=== PATIENT | male | born 1965 | race Caucasian/White ===

== ENCOUNTER 2023-11-10 07:34 | Outpatient (CLI) | payer OTHER, SELFPAY ==
--- NOTE | 2023-11-10 08:00 | MR_ITS ---
WS: [id number] MRI THORACIC SPINE WITHOUT CONTRAST TECHNIQUE: Sagittal T1, T2 and STIR imaging. Axial T2 imaging. Noncontrast imaging obtained. CLINICAL INFORMATION: persistant pain at T7 s/p trauma 10/13 w radiculopathy COMPARISON: None. FINDINGS: Mild thoracic curve. No acute compression. No high-grade central canal stenosis. Cord signal is nato l. Mild spondylitic changes thoracic spine with mild anterior atrophic changes. Mild to moderate face t arthropathy lower thoracic spine. Mild central canal stenosis in the cervical spine on the relief cook im aging at C3-C6. Mild LEFT greater than RIGHT bony foraminal narrowing at T9-T10, bilateral T10-11 Normal caliber thoracic aorta. IMPRESSION: 1. Mild thoracic curve. No acute compression. 2. Cord signal is normal. No significant central canal stenosis. 3. Mild central canal stenosis in the cervical spine on the relief cook imaging at C3-C6. This can be furt her evaluated with cervical spine MRI. 4. Mild LEFT greater than RIGHT bony foraminal narrowing at T9-T10, and mild bilateral T10-11 bony f oraminal narrowing 5. Mild to moderate facet arthropathy lower thoracic spine.
== END 2023-11-10 07:35 | disposition home or self-care (01) ==
LOC: RAD 07:36
PROVIDERS: PCP Family Medicine; Visit Provider Family Medicine
DX: M48.04 Spinal stenosis, thoracic region (principal); M48.02 Spinal stenosis, cervical region; M47.24 Other spondylosis with radiculopathy, thoracic region
CPT/HCPCS: 72146

== ENCOUNTER → 2024-04-18 10:14 | Outpatient (BNVA) | payer OTHER, SELFPAY | PROVIDERS: PCP Family Medicine; Visit Provider Family Medicine | DX: Z02.4 Encounter for examination for driving license (principal) | CPT/HCPCS: 81000 ==